=== PATIENT | male | born 1955 ===

== ENCOUNTER 2017-07-16 07:53 | Day surgery (SDC) | payer OTHER ==
[~2017-07-16] VITALS: Ht 170.2 cm; Wt 106.8 kg
[~2017-07-16 07:53] MED LIST: Aspir 8181 MG; Crestor20 MG; LISI20; Levothyroxine137 MCG; METFORMIN HCL1000 MG PO
[2017-07-16] MEDS ORDERED: GLIP5 (08:13)
== END 2017-07-16 10:29 | disposition home or self-care (01) ==
LOC: ORSCSDS 07:53
PROVIDERS: Surgery
PROC: 0DBH8ZX Excision of Cecum, Via Natural or Artificial Opening Endoscopic, Diagnostic (ICD-10-PCS; principal; 2017-07-16 09:15)
DX: Z12.11 Encounter for screening for malignant neoplasm of colon (principal); D12.0 Benign neoplasm of cecum; E11.9 Type 2 diabetes mellitus without complications; I10 Essential (primary) hypertension; E03.9 Hypothyroidism, unspecified; E78.5 Hyperlipidemia, unspecified; E66.9 Obesity, unspecified; Z68.38 Body mass index [BMI] 38.0-38.9, adult; Z79.82 Long term (current) use of aspirin; Z79.84 Long term (current) use of oral hypoglycemic drugs; Z79.899 Other long term (current) drug therapy
CPT/HCPCS: 82947; 88305; J7120